=== PATIENT | male | born 1970 | race Caucasian/White ===

== ENCOUNTER 2016-03-04 19:27 | Emergency (ER) | payer BC ==
[2016-03-04 19:31] VITALS: BP 143/70
--- NOTE | 2016-03-04 20:05 | UC ---
Knee Pain HPI - HPI Summary HPI Summary: The patient comes in today for: 1. Right knee pain: Onset: 5 days ago. Palliative/provocative: Squatting and bending makes it worse. Quality: [place] Region: Right lateral knee. Severity: 2/10 Time: Comes and goes. Rest and elevation helps. Associated symptoms: Event: He was kicked while milking. Previous injury: None to this knee. * - History of Current Complaint Chief Complaint: UCLowerExtremity Stated Complaint: KNEE INJURY Time Seen by Provider: 03/04/16 19:56 Hx Obtained From: Patient - Allergies/Home Medications Allergies/Adverse Reactions: Allergies Allergy/AdvReac Type Severity Reaction Status Date / Time Penicillins Allergy Rash Verified 03/04/16 19:31 Home Medications: Home Medications NK [No Home Medications Reported] 03/04/16 [History Confirmed 03/04/16] PMH/Surg Hx/FS Hx/Imm Hx Previously Healthy: Yes Endocrine History Of: Denies: Diabetes, Thyroid Disease, Hyperthyroidism, Hypothyroidism, Dyslipidemia Cardiovascular History Of: Denies: Cardiac Disorders, Hypertension, Pacemaker/ICD, Myocardial Infarction , Congestive Heart Failure, Atrial Fibrillation, Deep Vein Thrombosis, Bleeding Disorders Respiratory History Of: Denies: COPD, Asthma, Bronchitis, Pneumonia, Pulmonary Embolism GI/ History Of: Denies: Gastroesophageal Reflux, Ulcer, Gastrointestinal Bleed, Gall Bladder Disease, Kidney Stones, Diverticulitis, Renal Disease, Urosepsis Neurological History Of: Denies: TIA, CVA, Dementia, Seizures, Migraine Psychological History Of: Denies: Anxiety, Depression, Bipolar Disorder, Schizophrenia, Post Traumatic Stress Disorder Cancer History Of: Denies: Lung Cancer, Colorectal Cancer, Breast Cancer, Prostate Cancer, Cervical Cancer Other History Of: Negative For: HIV, Hepatitis B, Hepatitis C, Anticoagulant Therapy - Surgical History Surgical History: None - Family History Known Family History: Positive: Hypertension Negative: Cardiac Disease - Social History Occupation: Employed Full-time Alcohol Use: None Substance Use Type: None Smoking Status (MU): Never Smoked Tobacco Review of Systems Constitutional: Negative Skin: Negative Eyes: Negative ENT: Negative Respiratory: Negative Cardiovascular: Negative Gastrointestinal: Negative Genitourinary: Negative Musculoskeletal: Arthralgia, Myalgia All Other Systems Reviewed And Are Negative: Yes Physical Exam Triage Information Reviewed: Yes Appearance: Well-Appearing, No Pain Distress, Well-Nourished Vital Signs: Initial Vital Signs Temp 97.9 F 03/04/16 19:28 Pulse 69 03/04/16 19:28 Resp 16 03/04/16 19:28 BP 143/70 03/04/16 19:28 Pulse Ox 97 03/04/16 19:28 Vital Signs Reviewed: Yes Eyes: Positive: Conjunctiva Clear. Negative: Discharge ENT: Positive: Hearing grossly normal. Negative: Pharyngeal erythema, Nasal congestion, Nasal drainage, TM bulging, TM dull, TM red, Tonsillar swelling, Tonsillar exudate Dental: Negative: Gross Decay/Caries @, Dental Fracture @ Neck: Positive: Supple, Nontender, No Lymphadenopathy. Negative: Nuchal Rigidity Respiratory: Positive: Chest non-tender, Lungs clear, No respiratory distress, No accessory muscle use. Negative: Crackles, Rhonchi, Wheezing Cardiovascular: Positive: RRR, No Murmur Abdomen Description: Positive: Nontender, No Organomegaly, Soft. Negative: Distended, Guarding Musculoskeletal: Positive: Strength Intact, ROM Intact, Other: - Right knee: There is a 1 to 1.5 cm in diameter swollen area, with no erythema or ecchymosis on the lateral right knee at the end of the lateral condyle in the flexed position. It is non-tender. There is no joint effusion, or tenderness to palpation of the posterior capsule or the hamstring tendons. There is no tenderness to palpation of the pre-patellar or pes anserinux bursas. There is minimal tenderness to palpation of the lateral, anterior menisci, but this was where the lateral swelling area was as described above. There was no medial anterior menisi tenderness. There was good range of motion. Neurological: Positive: Alert, Muscle Tone Normal Psychological: Positive: Age Appropriate Behavior, Consolable Skin: Negative: rashes, breakdown Diagnostics - Radiology No standard instances Xray Interpretation: No Acute Changes Radiology Interpretation Completed By: Radiologist Knee Pain Course/Dx - Differential Dx/Diagnosis Differential Diagnosis/HQI/PQRI: Contusion, Fracture (Closed) Provider Diagnoses: Right knee pain, contusion. Discharge - Discharge Plan Condition: Stable Disposition: HOME Patient Education Materials: Knee Pain (ED), Contusion in Adults (ED) Referrals: [facility] [place] PHYSICIAN REFERRAL [Outside] No Primary Care Phys,NOPCP [Primary Care Provider] - 1 Week (Please see your primary care provider in about three days to see how well you are doing. If you don't have a primary care provider, please contact the physician referral service. If you can't get in timely, please you may come back to see us until you can. If you get worse, please be seen sooner by us or the ER.) Additional Instructions: Use [id number] pain medication as needed.
--- NOTE | 2016-03-04 20:38 | RAD ---
HISTORY: Right lateral knee pain, trauma COMPARISONS: None VIEWS: 4, Frontal, lateral, axial, and oblique views of the right knee FINDINGS: BONE DENSITY: Normal. BONES: There is no acute displaced fracture. There is a well-corticated bone fragment along the anterior tibia suggestive of remote avulsion injury JOINTS: There is no arthropathy. There is no suprapatellar joint effusion or lipohemarthrosis. ALIGNMENT: There is no dislocation. SOFT TISSUES: Unremarkable. OTHER FINDINGS: None. IMPRESSION: NO ACUTE OSSEOUS INJURY. IF SYMPTOMS PERSIST, RECOMMEND REPEAT IMAGING.
== END 2016-03-04 21:00 | disposition home or self-care (01) ==
LOC: UCEAST 19:27
DX: S80.01XA Contusion of right knee, initial encounter (principal); W22.8XXA Striking against or struck by other objects, initial encounter; Y93.K2 Activity, milking an animal; Y92.9 Unspecified place or not applicable
CPT/HCPCS: 99211; G0463

== ENCOUNTER 2017-02-15 05:58 | Day surgery (SDC) | payer BC ==
--- NOTE | 2017-02-05 15:29 | HP ---
HISTORY AND PHYSICAL: DATE OF ADMISSION/SURGERY: 02/15/17 SURGEON: Mary Carrero MD * (DICTATED BY EMEKA GONZALEZ) PROCEDURE: Open right knee cyst excision. CHIEF COMPLAINT: Right knee pain. HISTORY OF PRESENT ILLNESS: Ms. Tinoco is a 46-year-old gentleman with right knee pain. He has failed conservative management and elected to proceed with right knee cyst excision. PAST MEDICAL HISTORY: Denies. PAST SURGICAL HISTORY: [place] teeth extraction. CURRENT MEDICATIONS: None ALLERGIES: PENICILLIN. FAMILY HISTORY: Diabetes and hypertension. SOCIAL HISTORY: He is a 46-year-old gentleman, lives with his . He does not smoke, use drugs or alcohol. REVIEW OF SYSTEMS: A complete 14-point review of systems was reviewed with the patient, was all negative or noncontributory. PHYSICAL EXAMINATION GENERAL: He is well developed, well nourished, in no acute distress. VITAL SIGNS: He stands 5 feet 10 inches tall, weighs 248 pounds. Blood pressure is 140/86, his heart rate is 104. HEENT: Normocephalic, atraumatic. NECK: Supple. No palpable lymph nodes. PULMONARY: The lungs are clear to auscultation bilaterally. CARDIO: Regular rate and rhythm. Strong S1, S2. ABDOMEN: Soft, nontender, and nondistended. MUSCULOSKELETAL: Right lower extremity, the skin is intact. There are no open wounds or abrasions. Range of motion 0 to 130 degrees. No varus or valgus instability. There is some tenderness over the lateral joint line. 2+ dorsalis pedis pulse. He has intact sensation. His lower extremity muscle group strengths are intact at 5/5. NEUROLOGICAL: He is alert and oriented x3. Cranial nerves II through XII are intact. ASSESSMENT/PLAN: Mr. Tinoco is a 46-year-old gentleman with complaints of right knee pain. He has elected to proceed with an open cyst excision of the right knee. The surgery is scheduled for 02/15/[address] Carrero discussed the risks and benefits of the surgery at today's visit and all of his questions were answered. He will follow with Dr. Carrero 2 weeks after the surgery. EMEKA GONZALEZ [id number]/[facility] #: [id number] [place]
[~2017-02-15 05:58] MED LIST: Buffered Lidocaine 0.9% SYRIN* 5 ML/SYR SYRINGE INTRADERM ONE
[2017-02-15] MEDS ORDERED: Metoclopramide TAB* 10 MG PO ONE (06:00)
[2017-02-15] MEDS ORDERED: Famotidine IV* 10 MG/ML 2 ML (20 mg) IV ONE (06:00)
[2017-02-15] MEDS ORDERED: Famotidine IV* 10 MG/ML 2 ML (20 mg) ONE (06:06)
[2017-02-15] MEDS ORDERED: Metoclopramide TAB* 10 MG ONE (06:07)
[2017-02-15] MEDS ORDERED: Clindamycin 900 MG IVPREMIX(* 900 MG/50 ML SDV IV ONE (06:07)
[2017-02-15] MEDS ORDERED: Buffered Lidocaine 0.9% SYRIN* 5 ML/SYR SYRINGE ONE (06:07)
[2017-02-15] MEDS ORDERED: Dexamethasone IV* 4 MG/ML 1 ML (4 MG) ONE (07:09)
[2017-02-15] MEDS ORDERED: Lidocaine 2% PF * 5 ML VIAL ONE (07:09)
[2017-02-15] MEDS ORDERED: Ondansetron INJ* 2 MG/ML VIAL ONE (07:09)
[2017-02-15] MEDS ORDERED: Ketorolac INJ* 30 MG/ML 1 ML VIAL ONE (07:09)
[2017-02-15] MEDS ORDERED: Propofol* 10 MG/ML 20 ML BTL IV PUSH ONE (07:09)
[2017-02-15] MEDS ORDERED: fentaNYL* 50 MCG/ML 2 ML VIAL (100 MCG VIAL) ONE ×2 (07:09→07:40)
[2017-02-15] MEDS ORDERED: KETAMINE HCL* 50 MG/ML 10 ML VIAL ONE (07:10)
[2017-02-15] MEDS ORDERED: Midazolam* 1 MG/ML 10 ML VIAL (10 MG) ONE (07:11)
[2017-02-15] MEDS ORDERED: Ondansetron INJ* 2 MG/ML VIAL IV PRN (07:23)
[2017-02-15] MEDS ORDERED: oxyCODONE/Acetamin 5/325 MG* TAB PO PRN (07:23)
[2017-02-15] MEDS ORDERED: fentaNYL* 50 MCG/ML 2 ML VIAL (100 MCG VIAL) IV PRN (07:23)
[2017-02-15] MEDS ORDERED: EPINEPHRINE 1 MG/ML 1 ML VIAL ONE (07:24)
[2017-02-15] MEDS ORDERED: methylPREDNISolone ACETATE 80* 80 MG/ML 1 ML VIAL ONE (07:24)
[2017-02-15] MEDS ORDERED: Bupivacaine 0.25% SDV* 30 ML ONE (07:25)
[2017-02-15 09:46] VITALS: BP 127/94
--- NOTE | 2017-02-16 03:14 | OP ---
OPERATIVE REPORT: DATE OF OPERATION: 02/15/17 DATE OF : 68 SURGEON: Mary Carrero MD CARPENTER'S ASSISTANT: EMEKA Mancia Ms. did help throughout the procedure with preparation of the leg, wound retraction, manipul ation of the knee, and wound closure. PRE-OP DIAGNOSIS: Right anterolateral parameniscal cyst at the knee. POST-OP DIAGNOSIS: Right anterolateral parameniscal cyst at the knee. OPERATIVE PROCEDURE: Right knee diagnostic arthroscopy with synovial biopsy and partial open excisio n of anterolateral joint line cyst at the knee. ESTIMATED BLOOD LOSS: Less than 25 cc. COMPLICATIONS: None. SPECIMENS: Shaver. Specimen was collected and sent to Pathology. Also cystic material was collecte d from the anterolateral joint line and sent to Pathology in saline. BRIEF HISTORY/INDICATIONS: Mr. Tinoco is a 46-year-old gentleman with 6 months of enlarging mass al carmen the anterolateral joint line of his right knee. He had pain when kneeling and working. MRI show ed an anterolateral parameniscal cyst, but no obvious tear. The patient wished to have the cyst exci sed. Risks of surgery were explained to the patient. He understood the risks included, but were not limit ed to bleeding, infection, damage to nearby structures, continued pain, need for further surgery, reo ccurrence of the cyst, stroke, heart attack, blood clot, and . He wished to proceed. INTRAOPERATIVE FINDINGS: Intraoperatively, the patient was noted to have no obvious lateral meniscal tear. He did have some anterior fat pad enlargement consistent with cystic material. 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 DESCRIPTION OF PROCEDURE: Mr. Tinoco was identified in the preanesthesia unit. His right lower extr emity was marked as the correct operative side. Informed consent was signed and placed in the chart. The patient was taken to the operating room and placed under general anesthesia without difficulty. Right lower extremity was prepped and draped in the usual sterile fashion. Preop time-out was made to correctly identify the patient's side and site. Appropriate antibiotics were given within 1 hour of the incision. A 0.5 cm anterolateral portal incision was made with a 15 blade and carried down through the capsule. Trocar was introduced. As soon as the light and water sources were turned on, there was immediate visualization of the suprapatellar pouch. A tour was performed. Suprapatellar pouch had no obvious abnormality. Patellofemoral compartment showed grade 3 and 4 Outerbridge cartilage changes with expos ed subchondral bone and deep fissuring. Medial gutter had a small plica but no loose body. Medial c ompartment showed no obvious meniscal tear. There were grade 3 and 4 Outerbridge cartilage changes a long the medial femoral condyle. ACL and PCL appeared to be intact. There were some cystic material and enlarged fat pad along the anterior joint line. The knee was placed in a [id number] positio n. Minimal cartilage degeneration in the lateral compartment. No obvious meniscal tear in the later al compartment. Under direct visualization, a medial portal incision was made. Probe was introduced and a second brook r of the knee joint was performed. No additional findings or displaceable meniscal tears were identi fied. Shaver and radiofrequency ablation wand were introduced into the anterior joint. Enlarged fat pad or any cystic appearing material was carefully excised from along the anterior and anterolateral joint line. Shaver specimen was collected and sent to pathology. The knee was copiously irrigated with sterile saline. Instruments were removed. The anterolateral po rtal incision was then enlarged up to 2.5 cm vertical incision. Tenotomies were used to dissect in a subcutaneous fashion and multilocular cystic mass was identified. This was approximately 2 x 3 cm in diameter. This was carefully excised from the anterolateral joint capsule. This was sent to pathnawaf reddy. Electrocautery was used to obtain meticulous hemostasis. Any capsular incision was carefully c losed with interrupted #1 Vicryls. The rest of the incision was closed with interrupted #2 Vicryls. The skin was closed with Monocryl and Dermabond. Anteromedial portal incision was closed with a 3-0 nylon suture. Intraarticular injection of 80 mg of Depo-Medrol and 6 cc of 0.25 Marcaine was placed in the knee joint. The patient's incisions were covered with Adaptic, 4x4s, and Webril. Avinash wrap an d cold pack was placed over this. The patient's anesthesia was reversed without difficulty. He was taken to the PACU in stable conditi on. Intended weightbearing will be weightbearing as tolerated. Intended DVT prophylaxis will be aspi rin. He will follow up in the clinic in 2 weeks' time. [id number]/[facility] #: [id number]
== END 2017-02-15 10:10 | disposition home or self-care (01) ==
LOC: OR 05:58
PROVIDERS: ATTEND Orthopaedic Surgery Adult Reconstructive Orthopaedic Surgery
DX: M25.861 Other specified joint disorders, right knee (principal); Z88.0 Allergy status to penicillin
CPT/HCPCS: 88304; A9270-GY; J1040; J1100; J1885; J2250; J2405; J2704; J3010

== ENCOUNTER 2017-03-11 12:54 | Emergency (ER) | payer BC ==
[2017-03-11 13:15] VITALS: BP 112/72
--- NOTE | 2017-03-11 13:35 | UC ---
Respiratory Complaint HPI - HPI Summary HPI Summary: Started getting sick 1 week ago with sudden onset fever and cough. 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 Denies wheezing or trouble breathing, also denies nasal congestion. - History of Current Complaint Chief Complaint: UCGeneralIllness Stated Complaint: COUGH Time Seen by Provider: 03/11/17 13:18 Hx Obtained From: Patient Onset/Duration: Sudden Onset, Lasting Days Timing: Constant Severity Initially: Moderate Severity Currently: Moderate Character: Cough: Nonproductive Aggravating Factors: Deep Breaths Alleviating Factors: Upright Position Associated Signs And Symptoms: Positive: Fever, Chills. Negative: Wheezing, Hemoptysis, Nasal Congestion - Allergies/Home Medications Allergies/Adverse Reactions: Allergies Allergy/AdvReac Type Severity Reaction Status Date / Time Penicillins Allergy Rash Verified 03/11/17 13:08 Home Medications: Home Medications Ibuprofen [Ibuprofen 200 MG] 400 mg PO ONCE PRN 03/11/17 [History Confirmed ] Pseudoephedrine-Guaifenesin [Mucinex D 60-600 mg] 1 tab PO ONCE 03/11/17 [ History Confirmed 03/11/17] PMH/Surg Hx/FS Hx/Imm Hx Previously Healthy: Yes Other History Of: Negative For: HIV, Hepatitis B, Hepatitis C, Anticoagulant Therapy - Surgical History Surgical History: Yes Surgery Procedure, Year, and Place: 02/15/17 - knee surgery - Family History Known Family History: Positive: Hypertension Negative: Cardiac Disease - Social History Occupation: Employed Full-time Lives: With Family Alcohol Use: None Substance Use Type: None Smoking Status (MU): Never Smoked Tobacco - Immunization History Most Recent Influenza Vaccination: never Review of Systems Constitutional: Fever, Chills Skin: Negative Eyes: Negative ENT: Negative Respiratory: Cough Cardiovascular: Negative Gastrointestinal: Negative Genitourinary: Negative Motor: Negative Neurovascular: Negative Musculoskeletal: Negative Neurological: Negative Psychological: Negative Is Patient Immunocompromised?: No All Other Systems Reviewed And Are Negative: Yes Physical Exam Triage Information Reviewed: Yes Appearance: Well-Appearing, No Pain Distress, Obese Vital Signs: Initial Vital Signs Temp 99.2 F 03/11/17 13:10 Pulse 105 03/11/17 13:10 Resp 18 03/11/17 13:10 BP 112/72 03/11/17 13:10 Pulse Ox 98 03/11/17 13:10 Vital Signs Reviewed: Yes Eye Exam: Normal Eyes: Positive: Conjunctiva Clear ENT Exam: Normal ENT: Positive: Normal ENT inspection, Hearing grossly normal, Pharynx normal, TMs normal. Negative: Nasal congestion, TM bulging Dental Exam: Normal Neck exam: Normal Neck: Positive: Supple, Nontender, No Lymphadenopathy Respiratory: Positive: Chest non-tender, Normal breath sounds, No respiratory distress, No accessory muscle use Cardiovascular: Positive: No Murmur, Tachycardia Musculoskeletal Exam: Normal Neurological Exam: Normal Neurological: Positive: Alert Psychological Exam: Normal Skin Exam: Other - subQ mobile cyst near middle of T-spine consistent with inclusion cyst UC Diagnostic Evaluation - Laboratory O2 Sat by Pulse Oximetry: 98 Respiratory Course/Dx - Course Course Of Treatment: antibiotic prescribed, advised pt to start it if he is not completely fever-free without medication within 2 days. He understands, will come back here if he is worsening despite treatment. - Differential Dx/Diagnosis Differential Diagnosis/HQI/PQRI: Bronchitis, Lower Resp Infection Provider Diagnoses: influenza type A Discharge - Discharge Plan Condition: Stable Disposition: HOME Prescriptions: DOXYcycline CAP(*) [DOXYcycline 100MG CAP(*)] 100 mg PO BID #14 cap Patient Education Materials: Influenza (ED) Referrals: No Primary Care Phys,NOPCP [Primary Care Provider] - Additional Instructions: Your chest x-ray was read as normal by the radiologist. As long as your fever resolves in 36-48 hours, you do not need further treatment. If you continue to have fevers over 100F or feel you are becoming sicker, please take the course of doxycycline and come back here at any point if you feel you are not improving or worsening in any way.
--- NOTE | 2017-03-11 14:06 | RAD ---
Indication: Fever and cough. 2 views of the chest including dual energy PA views demonstrate no mediastinal shift. Heart is of normal size and configuration. Lung miller demonstrate no pleural fluid, pneumonia or pneumothorax. IMPRESSION: No active cardiopulmonary disease is noted.
== END 2017-03-11 14:15 | disposition home or self-care (01) ==
LOC: UCEAST 12:54
DX: J09.X2 Influenza due to identified novel influenza A virus with other respiratory manifestations (principal)
CPT/HCPCS: 71046; 87502; 99212; G0463

== ENCOUNTER 2017-09-17 15:43 | Emergency (ER) | payer BC ==
[2017-09-17 16:09] VITALS: BP 130/84
--- NOTE | 2017-09-17 16:12 | UC ---
Skin Complaint HPI - HPI Summary HPI Summary: 47 yo male presents with ?cyst to mid back. He tells me that about 3 days ago he began having pain in this area and thought it was just his cyst flaring up. Earlier today a friend looked at his back and noticed there is a big red swollen area. He is here for evaluation and is requesting I "vacuum it out". Denies fever, chills. - History of Current Complaint Chief Complaint: UCWounds Time Seen by Provider: 09/17/17 16:12 Stated Complaint: SORE ON BACK Hx Obtained From: Patient Onset/Duration: Gradual Onset Skin Exposure Onset/Duration: Days Ago Onset Severity: Mild Current Severity: Moderate Pain Intensity: 6 Pain Scale Used: 0-10 Numeric - Allergy/Home Medications Allergies/Adverse Reactions: Allergies Allergy/AdvReac Type Severity Reaction Status Date / Time Penicillins Allergy Rash Verified 09/17/17 16:09 Review of Systems Constitutional: Negative Skin: Other - Abscess mid back Respiratory: Negative Cardiovascular: Negative Gastrointestinal: Negative Neurovascular: Negative Neurological: Negative Psychological: Negative All Other Systems Reviewed And Are Negative: Yes PMH/Surg Hx/FS Hx/Imm Hx - Additional Past Medical History Additional PMH: None Previously Healthy: Yes Other History Of: Negative For: HIV, Hepatitis B, Hepatitis C, Anticoagulant Therapy - Surgical History Surgical History: Yes Surgery Procedure, Year, and Place: 02/15/17 - knee surgery - Family History Known Family History: Positive: Hypertension Negative: Cardiac Disease - Social History Occupation: Employed Full-time Lives: With Family Alcohol Use: None Substance Use Type: None Smoking Status (MU): Former Smoker - Immunization History Most Recent Influenza Vaccination: never Physical Exam - Summary Physical Exam Summary: GENERAL: NAD. WDWN. No pain distress. SKIN: Mid back: 4.0cm area of erythema, edema, and induration. Moderately TTP. No streaking, bleeding, or drainage. NECK: Supple. Nontender. No lymphadenopathy. CHEST: No accessory muscle use. Breathing comfortably and in no distress. CV: Pulses intact NEURO: Alert. CN II-XII grossly intact. PSYCH: Age appropriate behavior. Triage Information Reviewed: Yes Vital Signs: Initial Vital Signs Temp 99.3 F 09/17/17 16:07 Pulse 91 09/17/17 16:07 Resp 18 09/17/17 16:07 BP 130/84 09/17/17 16:07 Pulse Ox 98 09/17/17 16:07 Vital Signs Reviewed: Yes Course/Dx - Course Course Of Treatment: A time out was performed, witnessed, and signed. The area was cleansed with an alcohol pad. 3mL of 2% lidocaine without epi was administered and good anesthetization was achieved. A #11 blade was used to make a 5mm incision in the central most part of the abscess. Copious purulent matter was able to be expressed. The wound was bandaged with mepilex. Pt tolerated procedure well. A culture was obtained. Rx for clindamycin - Diagnoses Provider Diagnoses: Abscess mid back Discharge - Sign-Out/Discharge Documenting (check all that apply): Patient Departure - Discharge Plan Condition: Stable Disposition: HOME Prescriptions: Clindamycin HCl 150 mg PO TID #21 capsule Patient Education Materials: Abscess (ED), Cyst (ED) Referrals: No Primary Care Phys,NOPCP [Primary Care Provider] - Additional Instructions: If you develop a fever, shortness of breath, chest pain, new or worsening symptoms - please call your PCP or go to the ED. 1) change the dressing daily - Billing Disposition and Condition Condition: STABLE Disposition: Home
[2017-09-17] MEDS ORDERED: Lidocaine 2% PF * 5 ML VIAL INJ ONE (16:14)
== END 2017-09-17 16:48 | disposition home or self-care (01) ==
LOC: UCEAST 15:43
DX: Z88.0 Allergy status to penicillin (principal); Z87.891 Personal history of nicotine dependence; L02.212 Cutaneous abscess of back [any part, except buttock and flank]
CPT/HCPCS: 10060; 87070; 87076; 87205; 87640; 87641; 99212; G0463